=== PATIENT | female | born 1955 ===

== ENCOUNTER 2020-01-18 19:21 | Inpatient (IN) ==
[2020-01-18] MEDS ORDERED: GLUCAGON 1 MG VIAL IM PRN (22:16)
[2020-01-18] MEDS ORDERED: DEXTROSE 10% 250 ML BAG IV PRN (22:16)
[2020-01-18] MEDS ORDERED: ACETAMINOPHEN 325 MG TABLET PO PRN (22:16)
[2020-01-19] MEDS: PANTOPRAZOLE 40 MG TABLET PO SCH (08:40)
[2020-01-19] MEDS: OSELTAMIVIR 30 MG CAPSULE PO SCH ×2 (08:40→20:00)
[2020-01-19] MEDS: HYDROXYCHLOROQUINE 200 MG TABLET PO SCH ×2 (08:40→20:00)
[2020-01-19] MEDS: ZINC SULFATE 220 MG CAPSULE PO SCH (08:40)
[2020-01-19] MEDS ORDERED: ENOXAPARIN 100 MG/ML SYRINGE SUBCUT SCH (10:00)
[2020-01-19] MEDS: DOXYCYCLINE HYCLATE 100 MG CAPSULE PO SCH ×2 (12:15→20:00)
[2020-01-19 13:36] LABS: Apearance,Urine CLEAR (Clear); Bacteria,Urine Occasional /HPF (Few); Bilirubin,Urine Negative (Negative); Blood, Urine Moderate mg/dL (Negative); Glucose,Urine (UA) 50 mg/dL (Negative); Hyaline Casts,Urine 1 /LPF (0-3); Ketones,Urine Negative (Negative); Nitrite,Urine Negative (Negative); Protein,Urine 100 MG/DL; RBC,Urine 24 /HPF (0-4); Squamous Epithelial Cell,Urine Occasional /HPF (0-10); Urine Color Yellow (Yellow); Urine Specific Gravity 1.014 (1.001-1.035); Urine Urobilinogen < 2.0 EU/DL (0.2-1.0); WBC,Urine 12 /HPF (0-6)
[2020-01-19 14:02] LABS: Basophils % 0.4 % (0.0-0.8); Hematocrit 28.1 VOL% (35.7-47.0); Hemoglobin 8.4 GM/DL (12.0-16.0); Immature Granulocytes % 2.9 %; Immature Granulocytes Absolute 0.16 #; Lymphocytes % 17.5 % (21.3-54.2); Mean Corpuscular HGB Conc 29.9 GM/DL (32-36); Mean Corpuscular Volume 84.9 FL (87-102); Mean Platelet Volume 9.5 FL (9.6-12.0); Monocytes % 8.3 % (1.7-12.7); Neutrophils % 70.9 % (38.7-73.9); Platelet Count 315 T/CUMM (130-400); Red Blood Count 3.31 MC/CUMM (3.8-5.5); Red Cell Distribution Width 16.5 % (9.3-17.3); White Blood Count 5.5 T/CUMM (4-12)
[2020-01-19 14:13] LABS: Alanine Aminotransferase 24 U/L (13-56); Albumin 2.3 G/DL (3.4-5.0); Alkaline Phosphatase 66 U/L (45-117); Aspartate Amino Transferase 39 U/L (0-37); Bilirubin,Total < 0.39 MG/DL (0.2-1.0); Blood Urea Nitrogen 25 MG/DL (7-18); Calcium 8.9 MG/DL (8.5-10.1); Estimated Glom Filtration Rate 46 ML/MIN; Ferritin 75.7 ng/ml (8-252); Glucose 194 MG/DL (74-106); Osmolality,Calculated 278.1 MOS/KG (273-304); Total Protein 7.3 G/DL (6.4-8.3)
[2020-01-19 15:13] LABS: Lymphocytes 11 % (20-55); Metamyelocytes 2 %; Segmented Neutrophils 79 % (50-85); Total Cells Counted 100
[2020-01-19 15:14] LABS: Atypical Lymphocytes Few; Hypochromasia 3+; Microcytosis 2+
[2020-01-19 15:15] LABS: Giant Platelets Few; Platelet Estimate Increased; Polychromasia Few; Schistocytes Slight; Tear Drop Cells Few
[2020-01-19] MEDS: ENOXAPARIN 120 MG/0.8 ML SYRINGE SUBCUT SCH (19:55)
[2020-01-19] MEDS: cefTRIAXone 1,000 MG in SYRINGE 1 EACH IV SCH (19:55)
[2020-01-19] MEDS ORDERED: AZITHROMYCIN INJ 500 MG in SODIUM CHLORIDE 0.9% 250 ML IV SCH (20:00)
[2020-01-20 03:35] LABS: Calcium 8.7 MG/DL (8.5-10.1); Osmolality,Calculated 280.5 MOS/KG (273-304)
[2020-01-20 03:40] LABS: Basophils % 0.2 % (0.0-0.8); Hematocrit 30.1 VOL% (35.7-47.0); Hemoglobin 8.8 GM/DL (12.0-16.0); Immature Granulocytes % 3.2 %; Immature Granulocytes Absolute 0.15 #; Lymphocytes # 1.2 10*3/uL (1.4-4.0); Mean Corpuscular HGB Conc 29.2 GM/DL (32-36); Mean Corpuscular Volume 86.2 FL (87-102); Monocytes % 8.6 % (1.7-12.7); Platelet Count 341 T/CUMM (130-400); Red Blood Count 3.49 MC/CUMM (3.8-5.5); Red Cell Distribution Width 16.4 % (9.3-17.3); White Blood Count 4.7 T/CUMM (4-12)
[2020-01-20 04:48] LABS: Hypochromasia 1+; Lymphocytes 20 % (20-55); Microcytosis 1+; Nucleated Red Blood Cells 2 (0-5); Segmented Neutrophils 74 % (50-85); Total Cells Counted 100
[2020-01-20 04:49] LABS: Ovalocytes Slight; Tear Drop Cells Slight
[2020-01-20 04:50] LABS: Atypical Lymphocytes Few; Platelet Estimate Normal
[2020-01-20] MEDS: OSELTAMIVIR 30 MG CAPSULE PO SCH ×2 (09:16→20:30)
[2020-01-20] MEDS: PANTOPRAZOLE 40 MG TABLET PO SCH (09:16)
[2020-01-20] MEDS: DOXYCYCLINE HYCLATE 100 MG CAPSULE PO SCH ×2 (09:16→20:30)
[2020-01-20] MEDS: HYDROXYCHLOROQUINE 200 MG TABLET PO SCH ×2 (09:16→20:30)
[2020-01-20] MEDS: ZINC SULFATE 220 MG CAPSULE PO SCH (09:17)
[2020-01-20] MEDS: ENOXAPARIN 120 MG/0.8 ML SYRINGE SUBCUT SCH (20:35)
[2020-01-20] MEDS: cefTRIAXone 1,000 MG in SYRINGE 1 EACH IV SCH (20:37)
[2020-01-20] MEDS ORDERED: AZITHROMYCIN 250 MG TABLET PO SCH (21:00)
[2020-01-21 06:41] LABS: Basophils % 0.4 % (0.0-0.8); Hematocrit 33.2 VOL% (35.7-47.0); Immature Granulocytes % 4.9 %; Immature Granulocytes Absolute 0.25 #; Lymphocytes # 1.1 10*3/uL (1.4-4.0); Lymphocytes % 21.4 % (21.3-54.2); Mean Corpuscular HGB Conc 30.1 GM/DL (32-36); Mean Corpuscular Volume 83.4 FL (87-102); Mean Platelet Volume 9.7 FL (9.6-12.0); Monocytes % 9.7 % (1.7-12.7); Neutrophils % 63.6 % (38.7-73.9); Platelet Count 339 T/CUMM (130-400); Red Blood Count 3.98 MC/CUMM (3.8-5.5); Red Cell Distribution Width 16.1 % (9.3-17.3); White Blood Count 5.1 T/CUMM (4-12)
[2020-01-21 06:53] LABS: Calcium 9.2 MG/DL (8.5-10.1)
[2020-01-21] MEDS ORDERED: DEXTROSE 50% 25 GM/50 ML VIAL IV PRN (07:49)
[2020-01-21 08:00] LABS: Platelet Estimate Normal
[2020-01-21 08:01] LABS: Anisocytosis 2+
[2020-01-21 08:06] LABS: Hypochromasia Slight
[2020-01-21] MEDS: DOXYCYCLINE HYCLATE 100 MG CAPSULE PO SCH ×2 (08:24→22:30)
[2020-01-21] MEDS: HYDROXYCHLOROQUINE 200 MG TABLET PO SCH ×2 (08:24→22:30)
[2020-01-21] MEDS: OSELTAMIVIR 30 MG CAPSULE PO SCH (08:24)
[2020-01-21] MEDS: PANTOPRAZOLE 40 MG TABLET PO SCH (08:24)
[2020-01-21] MEDS: ZINC SULFATE 220 MG CAPSULE PO SCH (08:24)
[2020-01-21] MEDS: ONDANSETRON 4 MG/2 ML VIAL IV PRN (09:42)
[2020-01-21] MEDS: amLODIPine 5 MG TABLET PO SCH (12:40)
[2020-01-21] MEDS: INSULIN REGULAR 100 UNIT/ML SUBCUT SCH ×3 (13:02→22:48)
[2020-01-21] MEDS: cefTRIAXone 1,000 MG in SYRINGE 1 EACH IV SCH (22:30)
[2020-01-21] MEDS: ENOXAPARIN 120 MG/0.8 ML SYRINGE SUBCUT SCH (22:30)
[2020-01-21] MEDS: OSELTAMIVIR 75 MG CAPSULE PO SCH (22:30)
[2020-01-22 05:51] LABS: Basophils % 0.4 % (0.0-0.8); Hematocrit 32.7 VOL% (35.7-47.0); Hemoglobin 10.1 GM/DL (12.0-16.0); Immature Granulocytes % 4.4 %; Immature Granulocytes Absolute 0.21 #; Lymphocytes # 1.2 10*3/uL (1.4-4.0); Lymphocytes % 25.3 % (21.3-54.2); Mean Corpuscular HGB Conc 30.9 GM/DL (32-36); Mean Corpuscular Volume 82.4 FL (87-102); Mean Platelet Volume 10.4 FL (9.6-12.0); Monocytes % 11.9 % (1.7-12.7); Platelet Count 344 T/CUMM (130-400); Red Blood Count 3.97 MC/CUMM (3.8-5.5); Red Cell Distribution Width 16.1 % (9.3-17.3); White Blood Count 4.8 T/CUMM (4-12)
[2020-01-22 06:14] LABS: % Iron Saturation 17.7 % (18-50); Calcium 9.2 MG/DL (8.5-10.1); Ferritin 88.3 ng/ml (8-252); Osmolality,Calculated 273.1 MOS/KG (273-304)
[2020-01-22] MEDS: OSELTAMIVIR 75 MG CAPSULE PO SCH ×2 (08:47→21:15)
[2020-01-22] MEDS: DOXYCYCLINE HYCLATE 100 MG CAPSULE PO SCH ×2 (08:47→21:15)
[2020-01-22] MEDS: amLODIPine 5 MG TABLET PO SCH (08:47)
[2020-01-22] MEDS: PANTOPRAZOLE 40 MG TABLET PO SCH (08:47)
[2020-01-22] MEDS: HYDROXYCHLOROQUINE 200 MG TABLET PO SCH ×2 (08:47→21:15)
[2020-01-22] MEDS ORDERED: FERROUS SULFATE 325 MG TABLET PO SCH (09:00)
[2020-01-22] MEDS: ENOXAPARIN 40 MG/0.4 ML SYRINGE SUBCUT SCH (09:49)
[2020-01-22] MEDS: INSULIN REGULAR 100 UNIT/ML SUBCUT SCH ×4 (09:50→22:23)
[2020-01-22] MEDS ORDERED: IRON SUCROSE 200 MG in SODIUM CHLORIDE 0.9% 100 ML IV SCH (16:00)
[2020-01-22] MEDS: ONDANSETRON 4 MG/2 ML VIAL IV PRN (22:41)
[2020-01-23] MEDS: OSELTAMIVIR 75 MG CAPSULE PO SCH ×2 (09:39→21:25)
[2020-01-23] MEDS: PANTOPRAZOLE 40 MG TABLET PO SCH (09:39)
[2020-01-23] MEDS: HYDROXYCHLOROQUINE 200 MG TABLET PO SCH ×2 (09:39→21:25)
[2020-01-23] MEDS: ENOXAPARIN 40 MG/0.4 ML SYRINGE SUBCUT SCH (09:39)
[2020-01-23] MEDS: INSULIN REGULAR 100 UNIT/ML SUBCUT SCH ×4 (10:00→23:06)
[2020-01-23] MEDS: DOXYCYCLINE HYCLATE 100 MG CAPSULE PO SCH ×2 (10:00→21:25)
[2020-01-24 05:04] LABS: Basophils % 0.6 % (0.0-0.8); Hematocrit 34.8 VOL% (35.7-47.0); Hemoglobin 10.3 GM/DL (12.0-16.0); Immature Granulocytes % 2.6 %; Immature Granulocytes Absolute 0.14 #; Lymphocytes # 1.6 10*3/uL (1.4-4.0); Lymphocytes % 30.1 % (21.3-54.2); Mean Corpuscular HGB Conc 29.6 GM/DL (32-36); Mean Corpuscular Volume 84.5 FL (87-102); Mean Platelet Volume 9.2 FL (9.6-12.0); Monocytes % 16.4 % (1.7-12.7); Neutrophils % 50.3 % (38.7-73.9); Platelet Count 306 T/CUMM (130-400); Red Blood Count 4.12 MC/CUMM (3.8-5.5); Red Cell Distribution Width 16.4 % (9.3-17.3); White Blood Count 5.3 T/CUMM (4-12)
[2020-01-24 05:26] LABS: Osmolality,Calculated 278.8 MOS/KG (273-304)
[2020-01-24 05:28] LABS: Band Neutrophils 1 % (0-10); Hypochromasia 1+; Lymphocytes 29 % (20-55); Ovalocytes Slight; Platelet Estimate Adequate; Segmented Neutrophils 61 % (50-85); Total Cells Counted 100
[2020-01-24] MEDS: ENOXAPARIN 40 MG/0.4 ML SYRINGE SUBCUT SCH (07:57)
[2020-01-24] MEDS: DOXYCYCLINE HYCLATE 100 MG CAPSULE PO SCH (07:59)
[2020-01-24] MEDS: PANTOPRAZOLE 40 MG TABLET PO SCH (07:59)
[2020-01-24 09:32] VITALS: BP 128/89
[2020-01-24] MEDS: INSULIN REGULAR 100 UNIT/ML SUBCUT SCH ×2 (09:55→12:15)
== END 2020-01-24 13:54 | disposition home health service (06) | DRG 193 ==
LOC: N.ICU 21:28 → SUATTDRO 21:28 → SUPCPDRO 21:28 → N.2E 01-20 13:58
PROVIDERS: ADMIT Internal Medicine; ATTEND Internal Medicine Cardiovascular Disease